=== PATIENT | male | born 1990 | race American Indian/Alaskan Native ===

== ENCOUNTER 2016-12-15 16:29 | Emergency (ER) | payer OTHER ==
[2016-12-15 16:40] VITALS: BP 157/86; PULSE 74; RESP 18; TEMP 98.4; O2SAT 100
--- NOTE | 2016-12-15 17:37 | ED PDOC ---
Lower Extremity Pain/Injury Time Seen by Provider: 12/15/16 17:19 Chief Complaint (Nursing): Lower Extremity Problem/Injury Chief Complaint (Provider): ankle pain History Per: Patient History/Exam Limitations: no limitations - Ankle/Foot Description Of Injury: Twisted (yesterday, playing soccer. now with pain to ankle with ROM and with walking , pain improving no numbness tingling.) Alleviating Factor(s): Ice Therapy, Elevation - Risk Factors DVT Risk Factors: Pos: None Past Medical History Reviewed: Historical Data, Nursing Documentation, Vital Signs Vital Signs: Last Vital Signs Temp 98.4 F 12/15/16 16:37 Pulse 74 12/15/16 16:37 Resp 18 12/15/16 16:37 BP 157/86 H 12/15/16 16:37 Pulse Ox 100 12/15/16 16:37 - Medical History PMH: No Chronic Diseases - Family History Family History: States: No Known Family Hx - Allergies Allergies/Adverse Reactions: Allergies Allergy/AdvReac Type Severity Reaction Status Date / Time No Known Allergies Allergy Verified 12/15/16 17:27 Review of Systems ROS Statement: Except As Marked, All Systems Reviewed And Found Negative Musculoskeletal: Positive for: Other (ankle) Physical Exam - Reviewed Nursing Documentation Reviewed: Yes Vital Signs Reviewed: Yes - Physical Exam Appears: Positive for: Well, Non-toxic, No Acute Distress Skin: Positive for: Normal Color, Warm, DRY Cardiovascular/Chest: Positive for: Regular Rate, Rhythm Respiratory: Positive for: CNT, Normal Breath Sounds Extremity: Positive for: Other (right ankle : mild swelling noted to malleous( medial) nueorvasc intact. ) Neurologic/Psych: Positive for: Alert, Oriented - ECG O2 Sat by Pulse Oximetry: 100 - Radiology X-Ray: Interpreted by Hi X-Ray Interpretation: No Acute Disease - Progress ED Course And Treament: xray of ankle. decline pain control Medical Decision Making Medical Decision Making: xray: (-) fx dx: sprain tx: ORTHO RICE instruction, and air cast motrin for pain f/u with podiatry as needed Disposition - Clinical Impression Clinical Impression: Ankle pain, Ankle sprain and strain - Patient ED Disposition Is Patient to be Admitted: No Counseled Patient/Family Regarding: Studies Performed, Diagnosis, Need For Followup, Rx Given - Disposition Disposition: Routine/Home Disposition Time: 18:20 Condition: STABLE Instructions: Ankle Sprain (ED), Ankle Stirrup Splint (ED), Ankle Exercises ( GEN)
--- NOTE | 2016-12-16 12:28 | RAD ---
PROCEDURE: Right Ankle Radiographs. HISTORY: Unspecified injury.Anatomic area of interest: Lateral malleolar COMPARISON: None FINDINGS: BONES: Normal. No fracture. JOINTS: Normal. No osteoarthritis. Ankle mortise maintained. Talar dome intact SOFT TISSUES: Normal. OTHER FINDINGS: None. IMPRESSION: Region No significant or acute findings to account for/ related to the clinical presentation. No preliminary report provided by emergency department personnel.
== END 2016-12-15 18:47 | disposition home or self-care (01) ==
LOC: H.ER 16:29
DX: S93.401A Sprain of unspecified ligament of right ankle, initial encounter (principal); X50.1XXA Overexertion from prolonged static or awkward postures, initial encounter; Y93.66 Activity, soccer; Y92.9 Unspecified place or not applicable